=== PATIENT | female | born 1940 | race Caucasian/White ===

== ENCOUNTER → 2023-05-08 07:15 | Outpatient (REF) | payer MEDICARE, SELFPAY | LOC: PAVMRI 07:15 | PROVIDERS: ATTENDING PHYSICIAN Pain Medicine Interventional Pain Medicine; FAMILY PHYSICIAN Internal Medicine | DX: M54.16 Radiculopathy, lumbar region (principal) | CPT/HCPCS: 72148 ==

== ENCOUNTER → 2023-05-11 11:47 | Outpatient (REF) | payer MEDICARE, SELFPAY | LOC: WDC 11:47 | PROVIDERS: ATTENDING PHYSICIAN Internal Medicine | DX: Z12.31 Encounter for screening mammogram for malignant neoplasm of breast (principal) | CPT/HCPCS: 77063; 77067 ==

== ENCOUNTER → 2023-05-17 09:55 | Outpatient (REF) | payer MEDICARE, SELFPAY | LOC: WDC 09:55 | PROVIDERS: ATTENDING PHYSICIAN Internal Medicine | DX: R92.8 Other abnormal and inconclusive findings on diagnostic imaging of breast (principal) | CPT/HCPCS: 76642 ==

== ENCOUNTER → 2023-09-26 08:25 | Outpatient (REF) | payer MEDICARE, SELFPAY ==
[2023-09-26 15:17] LABS: ALT (SGPT) 21 U/L (0-35); AST (SGOT) 29 U/L (14-36); Albumin 3.6 g/dl (3.5-5.0); Alkaline Phosphatase 97 U/L (38-126); Direct Bilirubin 0.2 mg/dl (0.0-0.4); HDL Cholesterol 81 mg/dl; LDL Cholesterol, Calculated 61 mg/dl; Total Bilirubin 0.5 mg/dl (0.2-1.3); Total Cholesterol 196 mg/dl (50-199); Total Protein 6.4 g/dl (6.3-8.2); Triglyceride 272 mg/dl (10-149); Very Low Density Lipoprotein 54 mg/dl (0-30)
== END ==
LOC: REG 08:25
PROVIDERS: ATTENDING PHYSICIAN Internal Medicine
DX: Z00.00 Encounter for general adult medical examination without abnormal findings (principal); E78.5 Hyperlipidemia, unspecified; Z12.31 Encounter for screening mammogram for malignant neoplasm of breast; Z23 Encounter for immunization; E03.9 Hypothyroidism, unspecified
CPT/HCPCS: 36415; 80061; 80076

== ENCOUNTER → 2023-10-10 07:43 | Outpatient (REF) | payer MEDICARE, SELFPAY ==
[2023-10-10 08:48] LABS: % Basophils 0.8 % (0-2); % Eosinophils 2.9 % (0-6); % Immature Granulocytes 0.3 % (0-0.5); % Monocytes 13.2 % (1.7-9.3); % Neutrophils 60.8 % (42.2-75.2); Absolute Basophils 0.1 10^3/uL (0-0.2); Absolute Eosinophils 0.2 10^3/uL (0-0.7); Absolute Lymphocytes 1.4 10^3/uL (1.2-3.4); Absolute Monocytes 0.8 10^3/uL (0.1-0.6); Absolute Neutrophils 3.8 10^3/uL (1.4-6.5); Hematocrit 41.3 % (37.0-47.0); Hemoglobin 13.9 g/dL (12.0-16.0); Mean Corp Hgb Conc. 33.7 g/dL (33.0-37.0); Mean Corpuscular Hgb 31.6 pg (27.0-31.0); Mean Corpuscular Volume 93.9 fL (81.0-99.0); Mean Platelet Volume 9.2 fL (7.4-10.4); Nucleated Red Blood Cells % 0 %; Platelet Count 256 10^3/uL (130-400); Red Cell Dist. Width 12.6 % (11.5-14.5); White Blood Cell Count 6.3 10^3/uL (4.8-10.8)
[2023-10-10 09:04] LABS: ALT (SGPT) 24 U/L (0-35); AST (SGOT) 30 U/L (14-36); Albumin 3.9 g/dl (3.5-5.0); Alkaline Phosphatase 108 U/L (38-126); Blood Urea Nitrogen 27 mg/dl (7-17); Calcium 9.8 mg/dl (8.4-10.2); Carbon Dioxide 28 mmol/L (22-30); Chloride 102 mmol/L (98-107); Glucose 86 mg/dl (70-99); HDL Cholesterol 89 mg/dl; LDL Cholesterol, Calculated 70 mg/dl; Sodium 137 mmol/L (135-145); Total Bilirubin 0.6 mg/dl (0.2-1.3); Total Cholesterol 214 mg/dl (50-199); Total Protein 6.9 g/dl (6.3-8.2); Triglyceride 279 mg/dl (10-149); Very Low Density Lipoprotein 55 mg/dl (0-30); eGFR 50.48
[2023-10-10 09:32] LABS: TSH Reflex To Free T4 0.55 uIU/ml (0.47-4.68)
[2023-10-10 09:35] LABS: Potassium 4.7 mmol/L (3.5-5.1)
== END ==
LOC: REG 07:43
PROVIDERS: ATTENDING PHYSICIAN Internal Medicine
DX: I10 Essential (primary) hypertension (principal); E03.9 Hypothyroidism, unspecified; Z68.21 Body mass index [BMI] 21.0-21.9, adult; E78.5 Hyperlipidemia, unspecified
CPT/HCPCS: 36415; 80053; 80061; 84443; 85025

== ENCOUNTER → 2023-10-12 09:45 | Outpatient (REF) | payer MEDICARE, SELFPAY | LOC: RAD 09:45 | PROVIDERS: ATTENDING PHYSICIAN Internal Medicine | DX: R19.5 Other fecal abnormalities (principal); R10.9 Unspecified abdominal pain; Z87.19 Personal history of other diseases of the digestive system | CPT/HCPCS: 76700 ==

== ENCOUNTER → 2024-03-29 14:04 | Outpatient (REF) | payer MEDICARE, SELFPAY | LOC: RAD 14:04 | PROVIDERS: ATTENDING PHYSICIAN Internal Medicine | DX: R05.3 Chronic cough (principal) | CPT/HCPCS: 71046 ==

== ENCOUNTER → 2024-04-10 09:05 | Outpatient (REF) | payer MEDICARE, SELFPAY ==
[2024-04-10 10:42] LABS: % Basophils 0.8 % (0-2); % Eosinophils 1.5 % (0-6); % Immature Granulocytes 0.8 % (0-0.5); % Lymphocytes 17.3 % (20.5-51.1); % Monocytes 9.6 % (1.7-9.3); Absolute Eosinophils 0.1 10^3/uL (0-0.7); Absolute Lymphocytes 0.9 10^3/uL (1.2-3.4); Absolute Monocytes 0.5 10^3/uL (0.1-0.6); Absolute Neutrophils 3.7 10^3/uL (1.4-6.5); Hematocrit 41.7 % (37.0-47.0); Hemoglobin 13.5 g/dL (12.0-16.0); Mean Corp Hgb Conc. 32.4 g/dL (33.0-37.0); Mean Corpuscular Hgb 30.3 pg (27.0-31.0); Mean Corpuscular Volume 93.7 fL (81.0-99.0); Mean Platelet Volume 8.4 fL (7.4-10.4); Nucleated Red Blood Cells % 0 %; Platelet Count 269 10^3/uL (130-400); Red Blood Cell Count 4.45 10^6/uL (4.20-5.40); Red Cell Dist. Width 12.9 % (11.5-14.5); White Blood Cell Count 5.3 10^3/uL (4.8-10.8)
[2024-04-10 11:47] LABS: ALT (SGPT) 23 U/L (0-35); AST (SGOT) 25 U/L (14-36); Albumin 3.6 g/dl (3.5-5.0); Alkaline Phosphatase 93 U/L (38-126); Blood Urea Nitrogen 26 mg/dl (7-17); Calcium 8.9 mg/dl (8.4-10.2); Carbon Dioxide 25 mmol/L (22-30); Chloride 103 mmol/L (98-107); Glucose 83 mg/dl (70-99); HDL Cholesterol 80 mg/dl; Potassium 4.3 mmol/L (3.5-5.1); Sodium 133 mmol/L (135-145); Total Bilirubin 0.8 mg/dl (0.2-1.3); Total Cholesterol 203 mg/dl (50-199); Total Protein 6.4 g/dl (6.3-8.2); Triglyceride 239 mg/dl (10-149); Very Low Density Lipoprotein 47 mg/dl (0-30); eGFR 45.19
[2024-04-10 11:48] LABS: LDL Cholesterol, Calculated 76 mg/dl
[2024-04-10 11:51] LABS: TSH Reflex To Free T4 1.19 uIU/ml (0.47-4.68)
== END ==
LOC: REG 09:05
PROVIDERS: ATTENDING PHYSICIAN Internal Medicine
DX: I10 Essential (primary) hypertension (principal); E03.9 Hypothyroidism, unspecified; Z68.21 Body mass index [BMI] 21.0-21.9, adult; E78.5 Hyperlipidemia, unspecified
CPT/HCPCS: 36415; 80053; 80061; 84443; 85025

== ENCOUNTER 2024-04-29 07:41 | Emergency (ER) | payer MEDICARE, SELFPAY ==
[2024-04-29 07:46] VITALS: BP 167/103
--- NOTE | 2024-04-29 08:22 | ED.GENMED ---
History of Present Illness
General
Chief Complaint: Back Pain
Source: patient
Exam Limitations: none
Time Seen by Provider: 04/29/24 08:10
History of Present Illness
History of Present Illness:
See MDM
Past History
Past History
ED Past Medical History: GERD and Other (Diverticulosis)
ED Past Surgical History: Gynecological and Orthopedic (Right hip replacement 2016); Negative Cardiac
Social History
Tobacco: Non-smoker
Alcohol: None
Drug: None
Personal:
Living: with family
Employment: Retired
Family History
Family History: Other (Noncontributory)
Phy Exam
Physical Exam
Physical Exam:
See MDM
Course
Orders/Labs/Results
Orders:
Orders
04/29/24 08:21
CT Abd/pel Without Iv Or Oral Urgent
Comment:
Reason For Exam: R flank pain radiating to R groin
Ketorolac [Toradol] 30 mg IM NOW STA
Oxycodone/Acetaminophen [Percocet 5/325] 1 tablet PO NOW STA
Vital Signs
Initial and Last Documented VS:
Initial Vital Signs
Temp Pulse Resp BP Pulse Ox
98.2 F 87 18 167/103 95
04/29/24 07:46 04/29/24 07:46 04/29/24 07:46 04/29/24 07:46 04/29/24 07:46
Last Documented Vital Signs
Temp Pulse Resp BP Pulse Ox
98.2 F 87 18 167/103 95
04/29/24 07:46 04/29/24 07:46 04/29/24 07:46 04/29/24 07:46 04/29/24 07:46
MDM/Problems Addressed
Differential Diagnosis Includes:
HPI and MDM Narrative:
84-year-old female presenting with right-sided back pain. She noted it approximately 3 days ago. Patient states she was getting out of bed and she felt sudden onset of pain. Since then, the right flank pain has been radiating to her buttock. She
denies trouble urinating. She states this is a burning type of pain that sometimes goes down her leg.
On exam, she is ambulating without difficulty. She does have mild tenderness to right paralumbar area without midline tenderness. No rash. Negative straight leg raise. Abdomen soft and nontender. Distal extremity neurovascularly intact
Given her history and complaint, will obtain CT to rule out kidney stone but will treat as likely sciatic pain. Will give dose of Percocet and Toradol. She is on a blood thinners. Will avoid steroids given that she was recently on steroids this
past month for bronchitis
Physical exam
General: Well appearing and non-toxic
HEENT: protecting airway
Neck: appears supple
CV: No evidence of cyanosis
Resp: No accessory muscle use. Rhonchorous breath sounds to right base
Abd: Non-distended and nontender
Back: Mild tenderness to right paralumbar area
Extremities: No deformities
Neuro: alert
Psych: Normal affect
Skin: Intact
Problems Addressed including Acute and Chronic Conditions affecting care:
1. Right back pain
Acuity: acute
Prognosis: stable
Details: Will obtain CT to rule out kidney stone pathology
Updates
CT negative for acute pathology to explain her symptoms. She does have an enlarged gallbladder but has no right upper quadrant tenderness. There is concern for pneumonia in right lung base. She has been dealing with viral syndrome for the past
month. I will start doxycycline and Augmentin. Patient is feeling better after the pain medicine. Given her age and pneumonia, I did offer and suggest admission. However, patient states she would rather go home and understand return precautions
Differential Diagnosis (but not limited to): Kidney stone, muscle strain, sciatica
Testing considered: Lumbar x-ray
Drug therapy (if applicable): OTC meds, please see d/c instruction regarding Rx drugs
Amount and/or Complexity of Data Reviewed
Clinical info obtained from: Patient
External data reviewed: N/A
Labs I independently reviewed (but not limited to): N/A
Radiology: The CT scan was personally and independently reviewed. In addition, official CT report reviewed.
Pulse Ox: not hypoxic
EKG independently reviewed: N/A
Behavioral Scientist: N/A
Critical Care: N/A
Risk of Complication:
Social Determinants of health: Good social support
Discussed with other providers: N/A
Escalation of Care includes Admit/Obs: After being observed in the Emergency Department, pt stable for discharge.
Occasional wrong word or 'sound a like' substitutions may have occurred due to the inherent limitations of voice recognition software. Read the chart carefully and recognize, using context, where substitutions have occurred.
*Critical Care Note
Total Time (30-74mins, 75-104mins- exclusive of procedures): Not Applicable
ED Attending Note
-
Portions of this chart may have been created with voice recognition software.� Occasional wrong word or��sound alike� substitutions may have occurred due to the inherent limitations of voice recognition software.
Discharge Plan
Departure
Patient Disposition: Home (Routine Discharge)
Date of Disposition: 04/29/24
Time of Disposition: 10:24
Patient with high blood pressure during this ER visit?: Yes
Discharge Problem:
Back pain, PNA (pneumonia)
Instructions: Pneumonia in adults - ED discharge instructions, BLOOD PRESSURE
Prescriptions:
New
doxycycline hyclate 100 mg capsule
100 mg PO BID Qty: 14 0RF
amoxicillin-pot clavulanate 875-125 mg tablet
1 tab PO BID Qty: 14 0RF
oxycodone 5 mg tablet
5 mg PO Q8H PRN (Reason: Pain) Qty: 10 0RF
No Action
atorvastatin 10 MG tablet
10 mg PO DAILY
fexofenadine [Taryn] 60 MG capsule
60 mg PO PRN PRN (Reason: ALLERGIES)
levothyroxine 88 MCG tablet
88 mcg PO .MOTUEWETHFRSA
conjugated estrogens [Premarin] 0.625 MG tablet
0.625 mg PO DAILY
mometasone [Nasonex] 17 GM spray,non-aerosol
2 spray intranasal HS
montelukast 10 MG tablet
10 mg PO QPM
wzwmahas-rcy-LB-lycopen-lutein [Centrum Silver] 1 EACH tablet
1 ea PO DAILY
calcium carbonate-vitamin D3 [Caltrate 600 plus D] 1 EACH tablet,chewable
1 ea PO DAILY
celecoxib 200 MG capsule
200 mg PO BID
levothyroxine 88 MCG tablet
176 mcg PO .ANDERSON
peg 400-propylene glycol (PF) [Systane (PF)] 1 EACH dropperette
1 drp BOTH EYES PRN PRN (Reason: DRYNESS)
fluticasone propion-salmeterol [Advair Diskus] 1 DISK blister with device
1 inh PO DAILY
Patient Comments:
not on pt med list
tiotropium bromide [Spiriva Respimat] 1 PUFF mist
1 inh PO DAILY
Patient Comments:
not on pt med list
sennosides [senna] 1 TABLET tablet
2 tab PO BID Qty: 0 0RF
acetaminophen 325 MG tablet
650 mg PO Q4HPRN PRN (Reason: mild pain) Qty: 0 0RF
polyethylene glycol 3350 17 GRAMS powder in packet
17 grams PO DAILY Qty: 0 0RF
hydrocodone-acetaminophen 1 TABLET tablet
1 tab PO Q4HPRN PRN (Reason: moderate-severe pain) Qty: 90 0RF
Rx Instructions:
dx ADRIÁN
1-2 tabs
famotidine 20 MG tablet
20 mg PO HS Qty: 0 0RF
aspirin 325 MG tablet,delayed release (DR/EC)
325 mg PO DAILY Qty: 0 0RF
docusate sodium 100 MG capsule
100 mg PO BID Qty: 0 0RF
prednisone 20 MG tablet
40 mg PO DAILY Qty: 10 0RF
Referrals:
Kam Vela MD [Family Provider] -
Activity Restrictions/Additional Instructions:
Please return for any worsening symptoms.
You may return at any time if you have further concerns.
Please follow up with your doctor at the first available appointment, preferably this week.
You were given a prescription for narcotics. If you require this pain medicine, please take a daily [id number] stool softener to avoid constipation.
Thank you for choosing [facility].
Interventions
Interventions:
*Risk Screen - Suicide Last Done: 04/29/24 07:46
*General Assessment Last Done: 04/29/24 07:46
*Neglect/Abuse Screening Last Done: 04/29/24 07:46
*ED- Fall Risk Assessment Last Done: 04/29/24 08:35
*ED COVID-19 Vaccine History Last Done: 04/29/24 08:35
Discharge Date and Time
Print Language: MOHAWK
[2024-04-29] MEDS: PERCOCET 5/325 1 TABLET PO (08:32)
[2024-04-29] MEDS: TORADOL 30 MG IM (08:33)
[2024-04-29 08:34] VITALS: BMI 20.3
== END 2024-04-29 10:41 | disposition home or self-care (01) ==
LOC: EMR 07:41
PROVIDERS: EMERGENCY PHYSICIAN Student in an Organized Health Care Education/Training Program; FAMILY PHYSICIAN Internal Medicine
DX: M54.9 Dorsalgia, unspecified (principal); J18.9 Pneumonia, unspecified organism; K21.9 Gastro-esophageal reflux disease without esophagitis
CPT/HCPCS: 99284; 96372; 74176

== ENCOUNTER → 2024-06-05 10:53 | Outpatient (REF) | payer MEDICARE, SELFPAY | LOC: RAD 10:53 | PROVIDERS: ATTENDING PHYSICIAN Internal Medicine | DX: J18.9 Pneumonia, unspecified organism (principal) | CPT/HCPCS: 71046 ==

== ENCOUNTER → 2024-06-05 17:33 | Outpatient (REF) | payer MEDICARE, SELFPAY | LOC: MRI 17:33 | PROVIDERS: ATTENDING PHYSICIAN Internal Medicine | DX: R29.898 Other symptoms and signs involving the musculoskeletal system (principal); M54.16 Radiculopathy, lumbar region; R29.6 Repeated falls; M54.50 Low back pain, unspecified; M79.604 Pain in right leg; B02.8 Zoster with other complications | CPT/HCPCS: 72148; 73721 ==

== ENCOUNTER → 2024-07-05 14:06 | Outpatient (REF) | payer MEDICARE, SELFPAY | LOC: WDC 14:06 | PROVIDERS: ATTENDING PHYSICIAN Internal Medicine | DX: Z12.31 Encounter for screening mammogram for malignant neoplasm of breast (principal) | CPT/HCPCS: 77063; 77067 ==

== ENCOUNTER → 2024-12-04 09:38 | Outpatient (REF) | payer MEDICARE, SELFPAY ==
[2024-12-04 10:50] LABS: ALT (SGPT) 22 U/L (0-35); AST (SGOT) 25 U/L (14-36); Albumin 3.6 g/dl (3.5-5.0); Alkaline Phosphatase 85 U/L (38-126); HDL Cholesterol 87 mg/dl; LDL Cholesterol, Calculated 59 mg/dl; Total Protein 6.5 g/dl (6.3-8.2); Very Low Density Lipoprotein 49 mg/dl (0-30)
== END ==
LOC: REG 09:38
PROVIDERS: ATTENDING PHYSICIAN Internal Medicine
DX: Z00.01 Encounter for general adult medical examination with abnormal findings (principal); E78.5 Hyperlipidemia, unspecified
CPT/HCPCS: 36415; 80061; 80076

== ENCOUNTER → 2024-12-20 10:53 | Outpatient (REF) | payer MEDICARE, SELFPAY | LOC: RAD 10:53 | PROVIDERS: ATTENDING PHYSICIAN Nurse Practitioner Acute Care; FAMILY PHYSICIAN Internal Medicine | DX: J06.9 Acute upper respiratory infection, unspecified (principal) | CPT/HCPCS: 71046 ==

== ENCOUNTER → 2025-01-03 11:45 | Outpatient (REF) | payer MEDICARE, SELFPAY | LOC: RAD 11:45 | PROVIDERS: ATTENDING PHYSICIAN Nurse Practitioner Acute Care | DX: J06.9 Acute upper respiratory infection, unspecified (principal); J41.1 Mucopurulent chronic bronchitis | CPT/HCPCS: 71046 ==